=== PATIENT | female | born 1960 | race Caucasian/White ===

== ENCOUNTER 2024-05-22 11:45 | Inpatient (IN) | payer OTHER ==
[~2024-05-22] VITALS: Ht 167.6 cm; Wt 70.3 kg
[~2024-05-22 11:45] MED LIST: CATAFLAM
[2024-05-25 09:42] VITALS: BP 118/75
[2024-05-25] MEDS ORDERED: PROBIOTIC1 EAC4 PO (09:43)
[2024-05-25] MEDS ORDERED: LYRICA200 MG PO (09:43)
[2024-05-25] MEDS ORDERED: LIPITOR20 MG PO (09:44)
[2024-06-01] MEDS ORDERED: CEFTRIAXONE SODIUM 2,000 MG VIAL ONE (09:00)
[2024-06-01] MEDS ORDERED: METRONIDAZOLE/SODIUM CHLORIDE 500 MG/100 ML PIGGYBACK IV ONE (09:00)
[2024-06-01] MEDS ORDERED: LIDOCAINE HCL 1%/EPINEPHRINE 20ML VIAL IJ ONE (10:01)
[2024-06-01] MEDS ORDERED: SUGAMMADEX SODIUM 200 MG/2 ML VIAL IV ONE (11:09)
[2024-06-01] MEDS ORDERED: MORPHINE SULFATE 4 MG/ML CARTRIDGE IV PRN (11:30)
[2024-06-01] MEDS ORDERED: OxyCODONE HCL 5 MG TABLET (ROXICODONE) PO PRN (11:30)
[2024-06-01] MEDS ORDERED: 0.9 % SODIUM CHLORIDE 1,000 ML IV SCH (11:30)
[2024-06-01] MEDS ORDERED: ONDANSETRON HCL 2 MG/ML VIAL IV PRN (11:30)
[2024-06-01] MEDS ORDERED: DEXTROSE 50 % IN WATER 0.5 G/ML DISP.SYRIN IV PRN (11:30)
[2024-06-01] MEDS ORDERED: MORPHINE SULFATE 4 MG/ML VIAL IV ONE (11:50)
[2024-06-01 12:39] LABS: HEMATOCRIT 38.5 % (36.0-45.00); HEMOGLOBIN 13.2 g/dL (12.0-15.00); MEAN CELL VOLUME 82.3 fL (80.00-100.00); MEAN CORPUSCULAR HEMOGLOBIN 28.2 pg (27.00-32.0); MEAN CORPUSCULAR HGB CONC 34.2 g/dl (32.0-36.0); PLATELET COUNT 250 K/uL (150-450); RED BLOOD COUNT 4.68 M/uL (4.00-6.00); RED CELL DISTRIBUTION WIDTH 12.7 % (11.5-14.5)
[2024-06-01] MEDS ORDERED: HYOSCYAMINE SULFATE 0.125 MG TAB.SUBL SL SCH (13:00)
[2024-06-01 13:25] LABS: ALBUMIN 3.5 gm/dL (3.4-5.0); CALCIUM 9.2 mg/dL (8.5-10.1); CREATININE SERUM 0.61 mg/dL (0.55-1.02); GFR 99.38; MAGNESIUM 1.9 mg/dL (1.8-2.4); PHOSPHOROUS 4.7 mg/dL (2.5-4.9); POTASSIUM 3.69 mEq/L (3.5-5.1)
[2024-06-01] MEDS ORDERED: ACETAMINOPHEN 500 MG GEL..CAP PO SCH (14:00)
[2024-06-01 16:10] VITALS: BP 129/63; O2SAT 95
[2024-06-01] MEDS ORDERED: POLYETHYLENE GLYCOL 3350 17 GM BLIST.PACK PO SCH (17:00)
[2024-06-01] MEDS ORDERED: GABAPENTIN 300 MG CAPSULE PO SCH (17:00)
[2024-06-01] MEDS ORDERED: FAMOTIDINE/PF 20 MG/2 ML VIAL IV PUSH SCH (21:00)
[2024-06-01] MEDS ORDERED: CELECOXIB 200 MG CAPSULE PO SCH (21:00)
[2024-06-02 00:49] VITALS: BP 120/71; O2SAT 97
[2024-06-02 06:59] LABS: HEMATOCRIT 37.8 % (36.0-45.00); HEMOGLOBIN 12.7 g/dL (12.0-15.00); MEAN CELL VOLUME 83.9 fL (80.00-100.00); MEAN CORPUSCULAR HEMOGLOBIN 28.1 pg (27.00-32.0); MEAN CORPUSCULAR HGB CONC 33.6 g/dl (32.0-36.0); PLATELET COUNT 233 K/uL (150-450); RED CELL DISTRIBUTION WIDTH 12.4 % (11.5-14.5)
[2024-06-02 07:37] LABS: ALBUMIN 3.2 gm/dL (3.4-5.0); CALCIUM 9.1 mg/dL (8.5-10.1); CREATININE SERUM 0.48 mg/dL (0.55-1.02); GFR 131.05; PHOSPHOROUS 2.9 mg/dL (2.5-4.9); POTASSIUM 4.57 mEq/L (3.5-5.1)
[2024-06-02] MEDS ORDERED: PEPCID AC20 MG PO (08:13)
[2024-06-02] MEDS ORDERED: TRAM1TAB98 PO (08:13)
[2024-06-02] MEDS ORDERED: HYOSCYAMINE0.125 M1 SL (08:13)
[2024-06-02] MEDS ORDERED: ENOXAPARIN SODIUM 40 MG/0.4 ML SYRINGE SUBCUTANEO SCH (17:00)
[2024-06-03] MEDS ORDERED: ENOXAPARIN SODIUM 40 MG/0.4 ML SYRINGE SUBCUTANEO SCH (09:00)
== END 2024-06-02 10:03 | disposition home or self-care (01) | DRG 331 ==
LOC: SURH 06-01 07:00 → O/R 06-01 07:38 → SURH 06-01 11:45
PROVIDERS: ADMIT Surgery; ATTEND Surgery
PROC: 0DBH4ZZ Excision of Cecum, Percutaneous Endoscopic Approach (ICD-10-PCS; principal; 2024-06-01 07:00)
DX: D12.0 Benign neoplasm of cecum (principal); D37.4 Neoplasm of uncertain behavior of colon; Z20.822 Contact with and (suspected) exposure to COVID-19